=== PATIENT | female | born 1985 | race Caucasian/White ===

== ENCOUNTER 2022-03-23 11:13 | Emergency (ER) | payer OTHER, SELFPAY ==
--- NOTE | ~2022-03-23 | XR_ITS ---
EXAMINATION: XR wrist RT min 3V DATE: 03/23/2022 11:42 INDICATION: Right wrist injury and pain. TECHNIQUE: 4 views of right wrist were obtained. COMPARISON: None. FINDINGS: Bone alignment is normal. No fracture. Joint spaces are well maintained. IMPRESSION: 1. Normal right wrist. Reviewed, dictated and finalized at location A. IMPRESSION: 1. Normal right wrist.
[2022-03-23 11:22] VITALS: BP 117/77; PULSE 90; RESP 20; TEMP 36.8; O2SAT 100
--- NOTE | 2022-03-23 12:32 | ED.UPPEXIN ---
HPI - Extremity Injury (Upper) General Chief Complaint: Extremity Injury, Upper Stated Complaint: Right Wrist Injury Time Seen by Provider: 03/23/22 12:00 Source: patient, RN notes reviewed and old records reviewed Mode of arrival: ambulatory Limitations: no limitations History of Present Illness HPI narrative: 37 year old female with complaint of pain to her right wrist after shuttling a door last night. Patient verbalizes pain to her right wrist along ulnar aspect and reports that she can't rotate her hand without severe pain and she can't hold onto anything.Patient is able to make a fist, can flex and extend at wrist. Patient has not taken any medication today states she used ice on wrist. Patient states that she did use a splint to her right wrist with no improvement in her symptoms. MD complaint: injury to: right and wrist Treatments prior to arrival: cold therapy and splint Related Data Home Medications Medication Instructions Recorded Confirmed apixaban 5 mg tablet (Eliquis) tablet 03/23/22 famotidine 20 mg tablet tablet 03/23/22 fluticasone propionate 50 intranasal 03/23/22 mcg/actuation nasal spray,suspension levothyroxine 100 mcg tablet tablet 03/23/22 methocarbamol 500 mg tablet tablet 03/23/22 sumatriptan succinate 100 mg tablet tablet PO 03/23/22 Allergies Allergy/AdvReac Type Severity Reaction Status Date / Time adhesive tape Allergy Rash Verified 03/23/22 11:42 Review of Systems Review of Systems: CONSTITUTIONAL: Denies fever, chills, or sweats. EYES: Denies visual changes, redness, or discharge. ENT: Denies rhinorrhea, congestion, sore throat, or otalgia. CARDIOVASCULAR: Denies chest pain, palpitations, or edema. RESPIRATORY: Denies cough or dyspnea. GASTROINTESTINAL: Denies abdominal pain, nausea, vomiting, or diarrhea. GENITOURINARY: Denies dysuria or hematuria. SKIN: Denies rash or itching. MUSCULOSKELETAL: Denies back pain, positive for right wrist pain, or myalgia. NEUROLOGIC: Denies headache, numbness, or weakness. PSYCHIATRIC: Denies anxiety or depression. [facility] Past Medical History Medical History (Updated 03/24/22 @ 00:00 by Jose Reyes) Factor V Leiden Surgical History Surgical History (Updated 03/24/22 @ 11:52 by Joselyn Umana NP) S/P endometrial ablation Status post bilateral salpingectomy Social History Social History (Updated 03/24/22 @ 11:53 by Joselyn Umana NP) Smoking status: Never smoker Alcohol intake: current Alcohol use details: rare social Substance use: never Substance use type: does not use Living arrangements: with family Gender identity (if verbalized by the patient): Female Comments At time of signature, agree with nursing past medical, surgical, social and family history. There is no relevant family history pertinent to the presenting complaint Exam Narrative: GENERAL: Well-appearing, well-nourished, and in no acute distress. HEAD: Normocephalic, atraumatic. EYES: PERRLA and EOMI. ENT: Nares clear, no rhinorrhea or epistaxis. Mucous membranes moist.TM's normal with good light reflex throat pink with no leisons or exudates no tonsil swelling. NECK: Supple.no lymphadenopathy CHEST: Clear to auscultation. No respiratory distress.SAO2 100% on room air HEART: Regular rate and rhythm. No murmur heard. Normal peripheral pulses. ABDOMEN: Soft, nontender, nondistended, normal active bowel sounds EXTREMITIES: Normal range of motion. No edema.Pain to the ulnar aspect of her right wrist states pain 8/10, can't hold onto any thing and increased pain if she tries to rotate her wrist, can flex and extend wrist without difficulty, can make a fist without difficulty, sensation and circulation is intact. SKIN: Warm, dry, no rash NEURO: No focal deficits. Alert and oriented x3 Course Course Level of Care: Express Care Visit Vital Signs Vital signs: Vital Signs Temperature 36.8 C 03/23/22 11:22 Pulse Rate 90 03/23/22 11:2
== END 2022-03-23 12:59 | disposition home or self-care (01) ==
PROVIDERS: Emergency Provider Registered Nurse
DX: S63.501A Unspecified sprain of right wrist, initial encounter (principal); S66.911A Strain of unspecified muscle, fascia and tendon at wrist and hand level, right hand, initial encounter; X58.XXXA Exposure to other specified factors, initial encounter; D68.51 Activated protein C resistance
CPT/HCPCS: 73110; 99213; G0463

== ENCOUNTER 2022-09-01 09:05 | Emergency (ER) | payer OTHER, SELFPAY ==
[2022-09-01 09:34] VITALS: BP 133/70; PULSE 74; RESP 20; TEMP 36.8; O2SAT 100
--- NOTE | 2022-09-01 10:14 | ED.URI ---
HPI - URI/Sore Throat General Chief Complaint: Upper Respiratory Infection Stated Complaint: Cough Time Seen by Provider: 09/01/22 10:10 Source: patient and RN notes reviewed Mode of arrival: ambulatory Limitations: no limitations History of Present Illness HPI Narrative: 37-year-old female presents concern for a day history of cough, coughing fits, shortness of breath. Reports when her symptoms 1st started she had fever, chills, aches, sweats, nasal congestion, rhinorrhea. Reports those symptoms have improved but she still has persistent cough. She reports she is taking many things [id number] without relief MD elicited complaint: cough Related Data Home Medications Medication Instructions Recorded Confirmed apixaban 5 mg tablet (Eliquis) 1 tablet PO DAILY 03/23/22 09/01/22 famotidine 20 mg tablet 1 tablet PO DAILY 03/23/22 09/01/22 levothyroxine 100 mcg tablet 1 tablet PO DAILY 03/23/22 09/01/22 methocarbamol 500 mg tablet 500 tablet PO DAILY 03/23/22 09/01/22 sumatriptan succinate 100 mg tablet 1 tablet PO DAILY 03/23/22 09/01/22 sertraline 25 mg tablet 25 mg PO DAILY 09/01/22 09/01/22 Allergies Allergy/AdvReac Type Severity Reaction Status Date / Time adhesive tape Allergy Rash Verified 03/23/22 11:42 Review of Systems Review of Systems: CONSTITUTIONAL: Denies malaise, chills, sweats, or fever. EYES: Denies visual changes, redness, or discharge. ENT: Denied rhinorrhea, congestion, sinus pain, otalgia and sore throat. CARDIOVASCULAR: Denies chest pain, palpitations, or edema. RESPIRATORY: Reports cough, wheezing, dyspnea. GASTROINTESTINAL: Denies abdominal pain, nausea, vomiting, diarrhea SKIN: Denies rash or itching. MUSCULOSKELETAL: Denies myalgia. NEUROLOGIC: Denies headache. All systems reviewed & are unremarkable except as noted in HPI and below PMFSH Past Medical History Medical History (Updated 09/01/22 @ 10:19 by Silvana Anderson NP) Factor V Leiden Surgical History Surgical History (Updated 03/24/22 @ 11:52 by Joselyn Umana NP) S/P endometrial ablation Status post bilateral salpingectomy Social History Social History (Updated 03/24/22 @ 11:53 by Joselyn Umana NP) Smoking status: Never smoker Alcohol intake: current Alcohol use details: rare social Substance use: never Substance use type: does not use Gender identity (if verbalized by the patient): Female Comments At time of signature, agree with nursing past medical, surgical, social and family history. There is no relevant family history pertinent to the presenting complaint Exam Narrative: GENERAL: Well-appearing, well-nourished, and in no acute distress. HEAD: Normocephalic EYES: PERRLA, conjunctivae clear ENT: Nares clear. Mucous membranes moist. TM pearly sotomayor with sharp light reflex bilaterally; no tragal tenderness. Oropharynx not erythematous without lesions. Tonsils not enlarged and without exudate, no drooling, no hoarseness, no trismus, uvula midline. NECK: Supple. No lymphadenopathy CHEST: Clear to auscultation, breath sounds equal. No wheezing, rhonchi, rales, or stridor. No respiratory distress, speaks in full sentences. Cough Noted HEART: Regular rate and rhythm. No murmur heard. SKIN: Warm, dry, no rash. NEURO: Alert and oriented x3. PSYCH: Normal mood and affect Course Course Emergency Course: Patient is aware of diagnosis, understands and agrees to treatment plan. Anticipatory guidance given. Patient agrees to follow-up as directed and is aware of reasons to seek care at the emergency department. Portions of this record may have been created with voice recognition software Level of Care: Express Care Visit Vital Signs Vital signs: Vital Signs Temperature 98.2 F 09/01/22 09:34 Pulse Rate 74 09/01/22 09:34 Respiratory Rate 20 09/01/22 09:34 Blood Pressure 133/70 09/01/22 09:34 Pulse Oximetry 100 09/01/22 09:34 Oxygen Delivery Room Air 09/01/22 09:34 Temper
== END 2022-09-01 10:25 | disposition home or self-care (01) ==
PROVIDERS: Emergency Provider Nurse Practitioner
DX: J40 Bronchitis, not specified as acute or chronic (principal); D68.51 Activated protein C resistance; Z79.01 Long term (current) use of anticoagulants
CPT/HCPCS: 99213; G0463

== ENCOUNTER 2023-07-16 08:20 | Emergency (ER) | payer OTHER, SELFPAY ==
[2023-07-16 08:26] VITALS: BP 120/86; PULSE 68; RESP 18; TEMP 36.1; O2SAT 100
--- NOTE | 2023-07-16 08:41 | ED.URI ---
HPI - URI/Sore Throat General Chief Complaint: Upper Respiratory Infection Stated Complaint: cough/chest burning History of Present Illness HPI Narrative: Patient presents with cough. Dry hacking nonproductive cough worse at night. No shortness of breath no chest pain Related Data Home Medications Medication Instructions Recorded Confirmed apixaban 5 mg tablet (Eliquis) 1 tablet PO DAILY 03/23/22 07/16/23 famotidine 20 mg tablet 1 tablet PO DAILY 03/23/22 07/16/23 levothyroxine 100 mcg tablet 1 tablet PO DAILY 03/23/22 07/16/23 methocarbamol 500 mg tablet 500 tablet PO DAILY 03/23/22 07/16/23 sumatriptan succinate 100 mg tablet 1 tablet PO DAILY 03/23/22 07/16/23 sertraline 25 mg tablet 25 mg PO DAILY 09/01/22 07/16/23 Allergies Allergy/AdvReac Type Severity Reaction Status Date / Time adhesive tape Allergy Mild Rash Verified 07/16/23 08:35 Review of Systems Review of Systems: CONSTITUTIONAL: Denies chills, or sweats. Reports fever and generalized body aches EYES: Denies visual changes, redness, or discharge. ENT: Denies otalgia. Reports nasal congestion runny nose and sore throat CARDIOVASCULAR: Denies chest pain, palpitations, or edema. RESPIRATORY: Denies dyspnea. Reports occasional cough GASTROINTESTINAL: Denies abdominal pain, nausea, vomiting, or diarrhea. GENITOURINARY: Denies dysuria or hematuria. SKIN: Denies rash or itching. MUSCULOSKELETAL: Denies back pain, joint pain, or myalgia. Reports generalized body aches NEUROLOGIC: Denies headache, numbness, or weakness. PSYCHIATRIC: Denies anxiety or depression. [facility] Past Medical History Medical History (Updated 07/16/23 @ 08:43 by ANUSHKA Cano) Factor V Leiden Surgical History Surgical History (Updated 03/24/22 @ 11:52 by Joselyn Umana NP) S/P endometrial ablation Status post bilateral salpingectomy Social History Social History (Updated 03/24/22 @ 11:53 by Joselyn Umana NP) Smoking status: Never smoker Alcohol intake: current Alcohol use details: rare social Substance use: never Substance use type: does not use Living arrangements: with family Gender identity (if verbalized by the patient): Female Comments At time of signature, agree with nursing past medical, surgical, social and family history. There is no relevant family history pertinent to the presenting complaint Exam Narrative: The patient is a well-developed, well-nourished in no acute distress. SKIN: Skin is warm and dry without erythema, swelling or exudate. There is good turgor. No tenting. HEAD: Atraumatic. Normocephalic. No temporal or scalp tenderness. EYES: Moist and bright. Sclera and conjunctivae normal. No discharge. PERRLA. Extraocular motions intact. Gross visual acuity intact. EARS: Pinna is normal shape and contour. Clear external auditory canals. TM pearly bangura with good cone of light, no erythema or suppuration. Bilateral cerumen noted no gross hearing deficit. NOSE: pink, moist mucosa with good air movement. Clear rhinorrhea without nasal flaring. Septum midline. Mouth: moist mucous membranes. THROAT; mild erythema noted to posterior oropharynx with moderate postnasal drainage. Without exudate or ulceration.. Uvula midline. Normal movement of soft palate. NECK: Supple and nontender with full range of motion without discomfort. No meningeal signs. LUNGS: Equal and bilateral breath sounds without wheezes, rales or rhonchi. CHEST: The chest wall is without retractions or use of accessory muscles. HEART: Has a regular rate and rhythm without murmur, gallops, click or rub. ABDOMEN: Soft, nontender with positive active bowel sounds. No rebound tenderness. EXTREMITIES: Without cyanosis, clubbing or edema. Equal 2+ distal pulses and 2 second capillary refill noted. NEUROLOGIC: alert, active, . The patient moves all extremities with normal muscle strength. Normal muscle tone is noted. Normal coordination is noted. NO focal neurological fin
== END 2023-07-16 08:55 | disposition home or self-care (01) ==
PROVIDERS: Emergency Provider Nurse Practitioner Family
DX: J06.9 Acute upper respiratory infection, unspecified (principal); J40 Bronchitis, not specified as acute or chronic; Z79.899 Other long term (current) drug therapy; Z79.01 Long term (current) use of anticoagulants
CPT/HCPCS: 99213; G0463